=== PATIENT | male | born 1945 | race Caucasian/White ===

== ENCOUNTER 2018-01-16 06:39 | Day surgery (SDC) | payer OTHER ==
[~2018-01-16] VITALS: Ht 170.2 cm; Wt 73.6 kg
[~2018-01-16 06:39] MED LIST: SODIUM CHLORIDE 0.9% 1,000 ML IV ONE
[2018-01-16] MEDS ORDERED: LIDOCAINE 4% 50 ML SOLUTION TP ONE (06:40)
[2018-01-16] MEDS ORDERED: LIDOCAINE 2% 30 ML JELLY TP ONE (06:40)
[2018-01-16] MEDS ORDERED: BENZOCAINE 20% 50 MCG/SPRAY 57 GM TP ONE (06:40)
[2018-01-16] MEDS ORDERED: SODIUM CHLORIDE 0.9% 1,000 ML IV ONE (07:00)
[2018-01-16] MEDS ORDERED: FERR325T22 PO (07:49)
[2018-01-16] MEDS ORDERED: DSS100 PO (07:49)
[2018-01-16] MEDS ORDERED: LISI-661 PO (07:49)
[2018-01-16] MEDS ORDERED: METO25 PO (07:49)
[2018-01-16] MEDS ORDERED: MONT10TA21 PO (07:49)
[2018-01-16] MEDS ORDERED: HYDR25TA PO (07:49)
[2018-01-16] MEDS ORDERED: ISOS30TA6 PO (07:49)
[2018-01-16] MEDS ORDERED: AMLO-512 PO (07:49)
[2018-01-16] MEDS ORDERED: FLUT1AER5 PO (07:49)
[2018-01-16] MEDS ORDERED: VITAD1000 PO (07:49)
[2018-01-16] MEDS ORDERED: TAMS0.4C32 PO (07:49)
[2018-01-16] MEDS ORDERED: ATOR40TA28 PO (07:49)
[2018-01-16] MEDS ORDERED: CLOP75TA32 PO (07:49)
[2018-01-16] MEDS ORDERED: GABA-531 PO (07:49)
[2018-01-16] MEDS ORDERED: RANI150T7 PO (07:49)
[2018-01-16] MEDS ORDERED: FentaNYL CITRATE-PF 100 MCG/2 ML VIAL ONE (07:52)
[2018-01-16] MEDS ORDERED: MIDAZOLAM HCL 2 MG/2 ML VIAL ONE (07:52)
[2018-01-16] MEDS ORDERED: MethylPREDNISolone SOD SUCC 125 MG/2 ML VIAL IVP ONE (09:00)
[2018-01-16] MEDS ORDERED: OXYGEN THERAPY IH SCH (20:00)
== END 2018-01-16 10:10 | disposition home or self-care (01) ==
LOC: SURGERY 06:39
PROVIDERS: ATTEND Internal Medicine Critical Care Medicine
DX: J38.4 Edema of larynx (principal); B37.0 Candidal stomatitis; J98.09 Other diseases of bronchus, not elsewhere classified; I45.19 Other right bundle-branch block; J45.998 Other asthma; J43.9 Emphysema, unspecified; I10 Essential (primary) hypertension; E78.00 Pure hypercholesterolemia, unspecified; F10.21 Alcohol dependence, in remission; Z86.74 Personal history of sudden cardiac arrest; Z95.5 Presence of coronary angioplasty implant and graft; Z87.891 Personal history of nicotine dependence; Z86.73 Personal history of transient ischemic attack (TIA), and cerebral infarction without residual deficits; Z79.01 Long term (current) use of anticoagulants; Z79.891 Long term (current) use of opiate analgesic; Z79.899 Other long term (current) drug therapy
CPT/HCPCS: 31623; 31624; 71045; 87015; 87070; 87205; 87206; 87220; 93005; J2250; J2930; J3010; J7030; 88108; 88312

== ENCOUNTER 2019-02-01 05:35 | Day surgery (SDC) | payer OTHER ==
[~2019-02-01] VITALS: Ht 167.6 cm; Wt 72.7 kg
[~2019-02-01 05:35] MED LIST changes: +AMLO10TA7 PO; +ATOR40TA28 PO; +CHOL100018 PO; +DSS100 PO; +FERR325T22 PO; +FLUT1AER5 PO; +GABA-531 PO; +HYDR25TA PO; +ISOS30TA6 PO; +LISI-661 PO; +METO25 PO; +MONT10TA21 PO; +RANI150T7 PO; +SODIUM CHLORIDE 0.9% 0 ML IV ONE; +TAMS-13 PO
[2019-02-01] MEDS ORDERED: SODIUM CHLORIDE 0.9% 1,000 ML IV ONE (06:30)
[2019-02-01] MEDS ORDERED: FentaNYL CITRATE-PF 100 MCG/2 ML VIAL ONE (08:01)
[2019-02-01] MEDS ORDERED: MIDAZOLAM HCL 2 MG/2 ML VIAL ONE (08:01)
[2019-02-01] MEDS ORDERED: MethylPREDNISolone SOD SUCC 125 MG/2 ML VIAL ONE (08:27)
[2019-02-01] MEDS ORDERED: MethylPREDNISolone SOD SUCC 125 MG/2 ML VIAL IVP ONE (08:30)
[2019-02-01] MEDS ORDERED: OXYGEN THERAPY IH SCH (20:00)
== END 2019-02-01 09:40 | disposition home or self-care (01) ==
LOC: SURGERY 05:35
PROVIDERS: ATTEND Internal Medicine Critical Care Medicine
DX: R05 Cough (principal); J34.89 Other specified disorders of nose and nasal sinuses; J98.8 Other specified respiratory disorders; J18.9 Pneumonia, unspecified organism; J38.4 Edema of larynx; B37.0 Candidal stomatitis; N40.0 Benign prostatic hyperplasia without lower urinary tract symptoms; I25.10 Atherosclerotic heart disease of native coronary artery without angina pectoris; I10 Essential (primary) hypertension; E78.00 Pure hypercholesterolemia, unspecified; I25.2 Old myocardial infarction; J43.9 Emphysema, unspecified; Z86.73 Personal history of transient ischemic attack (TIA), and cerebral infarction without residual deficits; Z79.899 Other long term (current) drug therapy
CPT/HCPCS: 31623; 31624; 71045; 87015; 87070; 87101; 87205; 87206; 87220; 88108; 88312; 93005; J2250; J2930; J3010; J7030

== ENCOUNTER 2019-10-08 16:35 | Emergency (ER) | payer OTHER ==
[~2019-10-08] VITALS: Ht 170.2 cm; Wt 77.3 kg
[~2019-10-08 16:35] MED LIST changes: +GABA-1181 PO; -GABA-531 PO; -SODIUM CHLORIDE 0.9% 0 ML IV ONE; -SODIUM CHLORIDE 0.9% 1,000 ML IV ONE
[2019-10-08 16:48] VITALS: BP 160/72
== END 2019-10-08 17:16 | disposition home or self-care (01) ==
LOC: EMS 16:36
DX: Z03.818 Encounter for observation for suspected exposure to other biological agents ruled out (principal); I11.9 Hypertensive heart disease without heart failure; E78.00 Pure hypercholesterolemia, unspecified; Z79.899 Other long term (current) drug therapy
CPT/HCPCS: 99283; U0003

== ENCOUNTER 2019-10-15 06:40 | Day surgery (SDC) | payer OTHER ==
[~2019-10-15] VITALS: Ht 170.2 cm; Wt 74.0 kg
[~2019-10-15 06:40] MED LIST changes: +AMLO-258 PO; -AMLO10TA7 PO; +SODIUM CHLORIDE 0.9% 1,000 ML ONE
[2019-10-15] MEDS ORDERED: ALBUTEROL SULFATE 2.5 MG/0.5 ML NEB SOLUTION NEB ONE (06:41)
[2019-10-15] MEDS ORDERED: LIDOCAINE 4% 50 ML SOLUTION TP ONE (06:41)
[2019-10-15] MEDS ORDERED: LIDOCAINE 2% 30 ML JELLY TP ONE (06:41)
[2019-10-15] MEDS ORDERED: BENZOCAINE 20% 50 MCG/SPRAY 57 GM TP ONE (06:41)
[2019-10-15] MEDS ORDERED: SODIUM CHLORIDE 0.9% 1,000 ML IV ONE (07:00)
[2019-10-15] MEDS ORDERED: ALBU8.5H8 IH (07:47)
[2019-10-15] MEDS ORDERED: OMEP20 PO (07:47)
[2019-10-15] MEDS ORDERED: CILO100T PO (07:47)
[2019-10-15] MEDS ORDERED: FINA-27 PO (07:47)
[2019-10-15] MEDS ORDERED: MIDAZOLAM HCL 2 MG/2 ML VIAL ONE (08:04)
[2019-10-15] MEDS ORDERED: FentaNYL CITRATE-PF 100 MCG/2 ML VIAL ONE (08:04)
[2019-10-15] MEDS ORDERED: MethylPREDNISolone SOD SUCC 125 MG/2 ML VIAL IVP ONE (09:15)
[2019-10-15] MEDS ORDERED: MethylPREDNISolone SOD SUCC 125 MG/2 ML VIAL ONE (09:37)
[2019-10-15] MEDS ORDERED: OXYGEN THERAPY IH SCH (20:00)
== END 2019-10-15 10:35 | disposition home or self-care (01) ==
LOC: SURGERY 06:40
PROVIDERS: ATTEND Internal Medicine Critical Care Medicine
DX: J38.4 Edema of larynx (principal); B37.0 Candidal stomatitis; Z95.5 Presence of coronary angioplasty implant and graft; Z98.890 Other specified postprocedural states
CPT/HCPCS: 31623; 31624; 71045; 87015; 87070; 87077; 87101; 87186; 87205; 87206; 87220; 88108; 88312; 93005; J2250; J2930; J3010; J7030; J7613; Z7610